=== PATIENT | female | born 1945 | race Caucasian/White ===

== ENCOUNTER → 2016-07-16 | Outpatient (CLI) | payer MEDICARE, OTHER, MEDICAID ==
[~2016-07-16] MED LIST: ARTIFICIAL TEAR15 ML OPHTH; CALMOSEPTINE TOP; CATAPRES0.1 MG PO; CLARITIN10 MG PO; CPAP INH; FLONASE 50 MCG/16 GM NOSE; GEODON80 MG PO; HUMULIN 70100 UNIT/2 SUB-Q; HUMULIN 70100 UNIT/M SUB-Q; HYDRALAZINE HC100 MG PO; LEVOTHROID (S100 MCG PO; LEVOTHROID (S125 MCG PO; LEVOTHROID (S200 MCG PO; MIRALAX17 GM PO; MUCINEX D ER 61 EACH PO; NORCO 5-325 MG1 TAB PO; PHOSLO667 M1 PO; RENVELA800 MG PO; SEROQUEL100 MG PO; SEROQUEL400 MG PO; SEROQUEL50 MG PO; SUPHEDRINE PE10 MG PO; TEARGEN1 BOT OPHTH; TESSALON PERLE100 MG PO; TRANDATE OR NO100 MG PO; TYLENOL325 MG PO; [UNRECOGNIZED DRUG - OTHER] PO
== END | disposition disaster alternative care site (69) ==
LOC: GAIR 07:38
DX: T82.838A Hemorrhage due to vascular prosthetic devices, implants and grafts, initial encounter (principal); E11.9 Type 2 diabetes mellitus without complications; I10 Essential (primary) hypertension; N19 Unspecified kidney failure; Z79.899 Other long term (current) drug therapy
CPT/HCPCS: A0422; A0431; A0436